=== PATIENT | female | born 1945 | race American Indian/Alaskan Native ===

== ENCOUNTER 2017-09-04 16:25 | Emergency (ER) | payer MEDICARE, OTHER ==
[2017-09-04 16:35] VITALS: BMI 28.3
[2017-09-04 16:39] VITALS: TEMP 97.9
[2017-09-04] MEDS ORDERED: Oxymetazoline 0.05% Nasal Spray (30 ml) NS STA (17:17)
--- NOTE | 2017-09-04 17:23 | C.PDOC ---
History Of Present Illness Patient is a 72 year old with past medical history of HTN and lumbar herniated disc who presents to the ED with her daughter with complaints of right epistaxis that has been ongoing for the past 3-4 weeks. Patient [place] [facility] [place], nasal packing was placed in and removed 3 days later and was given amoxicillin for 5 days. Patient reports after the removal of nasal packing, symptoms nose bleeding resumed and coughing of blood clots. Patient admits to dizziness, palpitations, SOB and loss of appetite but denies chest pain, fever, chills, nausea, vomiting, weakness or numbness or tingling, trauma or anti-coagulation, blood disorder, easy bruising/bleeding. Time Seen by Provider: 09/04/17 16:49 Chief Complaint (Nursing): ENT Problem History Per: Patient History/Exam Limitations: no limitations Onset/Duration Of Symptoms: Days Current Symptoms Are (Timing): Still Present Severity: Mild Pain Scale Rating Of: 0 Reports Recently: Seen In ED Recent travel outside of the [place]: No Additional History Per: Patient Past Medical History Vital Signs: Last Vital Signs Temp 97.9 F 09/04/17 16:35 Pulse 62 09/04/17 16:35 Resp 18 09/04/17 16:35 BP 116/78 09/04/17 16:35 Pulse Ox 96 09/04/17 19:17 - Medical History PMH: Back Problems, HTN Surgical History: Hernia Repair Family History: States: Unknown Family Hx Other Family History: Denies family hx of blood disorder - Social History Hx Tobacco Use: Yes Hx Alcohol Use: No Hx Substance Use: No - Immunization History Hx Tetanus Toxoid Vaccination: No Hx Influenza Vaccination: No Hx Pneumococcal Vaccination: No Review Of Systems Constitutional: Negative for: Fever, Chills, Weakness Eyes: Negative for: Pain, Vision Change ENT: Positive for: Other (Right epistaxis ) Cardiovascular: Positive for: Palpitations, Light Headedness. Negative for: Chest Pain, Orthopnea, Paroxysmal Noc. Dyspnea, Edema Respiratory: Positive for: Shortness of Breath, Wheezing. Negative for: SOB with Excertion, Pleuritic Pain, Sputum Gastrointestinal: Negative for: Nausea, Vomiting, Abdominal Pain, Constipation, Hematochezia, Hematemesis Genitourinary: Negative for: Hematuria Neurological: Positive for: Dizziness. Negative for: Weakness, Confusion, Seizures, Altered Mental Status Psych: Positive for: Anxiety Physical Exam - Physical Exam Appears: No Acute Distress Skin: Normal Color Head: Atraumatic, Normacephalic Eye(s): bilateral: Normal Inspection, PERRL, EOMI Ear(s): Bilateral: Normal, TM Erythema Nose: Normal, Other (Inflammed, no active bleeding ) Tongue: Normal Appearing, No Swelling, No Lesions, No Laceration, No Bleeding Lips: Normal Appearing Teeth: Normal Dentition Throat: Normal, No Erythema, No Exudate, No Drooling Cardiovascular: Rhythm Regular, No Murmur Respiratory: No Accessory Muscle Use, No Rales, No Rhonchi, Wheezing (Bilateral upper lobes ) Gastrointestinal/Abdominal: Normal Exam, Bowel Sounds, Soft, No Tenderness Extremity: No Tenderness, No Pedal Edema, No Calf Tenderness Extremity: Bilateral: Atraumatic, Normal ROM Neurological/Psych: Oriented x3, Normal Speech, Normal Cognition ED Course And Treatment - Laboratory Results Result Diagrams: 09/04/17 17:54 09/04/17 17:54 Lab Interpretation: Abnormal Interpretation Of Abnormal: Hypokalemia: K-dur 40meq PO once O2 Sat by Pulse Oximetry: 96 - Radiology CXR Interpretation: Yes: No Acute Disease Progress Note: Stable H/H Disposition Discussed With : Clifford Soliz - Disposition Referrals: Chay Langford MD [Staff Provider] - Disposition: HOME/ ROUTINE Disposition Time: 19:16 Condition: GOOD Additional Instructions: Please discharge patient home Please follow up with your primary care physician for an ENT referral Please follow up with your primary care physician Please increase intake of banana as you were noted to have hypokalemia. You were given K-Dur 40meq once in the ED Self care for nose bled: 1. Gently blow your nose to get rid of some of the clots that have formed inside your nostrils. This may increase the bleeding temporarily, but that's OK. For young children, this step is not necessary. 2. Sit or stand while bending forward slightly at the waist. Do not lie down or tilt your head back. This may cause you to swallow blood and can lead to vomiting. 3. Metals Analyst the soft part of BOTH nostrils at the bottom of your nose. Do not hide puller the bony bridge of your nose, as that will not help the bleeding, and do not apply pressure to just one side, even if the bleeding is only on one side. 4. Squeeze your nose closed for at least 5 minutes (for children) or 10 to 15 minutes (for adults), and use a clock to time yourself. Do not release the pressure every so often to check whether the bleeding has stopped. Many people hurt their chances of stopping the bleeding by releasing the pressure too soon. 5. If you want, you can also apply a cold compress or ice pack to the bridge of your nose. This may help the blood vessels constrict and slow the bleeding. This step is not usually necessary, but many people like to do it. 6. If you follow the steps outlined above, and your nose continues to bleed, repeat all the steps once more. Apply pressure for a total of at least 30 minutes. If you continue to bleed, seek emergency medical care, either at an emergency room or at an urgent care clinic. Things to help prevent nosebled 1. Use a humidifier in your bedroom while sleeping, especially when the air is very dry 2. Keep your nose moist using a saline nasal spray or gel 3. Avoid picking your nose, or if you must do it clip your fingernails to avoid injury Please take care Forms: [facility] (Tristanian) - Clinical Impression Clinical Impression: Right-sided epistaxis
[2017-09-04] MEDS ORDERED: Oxymetazoline 0.05% Nasal Spray (30 ml) NS ONE (17:45)
[2017-09-04 17:58] LABS: BASO % 1.1 % (0.0-2.0); EOS # 0.5 K/uL (0.0-0.7); EOS % 13.4 % (0.0-4.0); HEMOGLOBIN 12.9 g/dL (11.0-16.0); LYMPH # 1.9 K/uL (1.0-4.3); LYMPH % 50.8 % (20.0-40.0); MEAN CELL VOLUME 90.2 fL (81.0-99.0); MEAN CORPUSCULAR HGB CONC 33.2 g/dL (33.0-37.0); MEAN PLATELET VOLUME 9.5 fL (7.2-11.7); MONO # 0.3 K/uL (0.0-0.8); MONO % 6.7 % (0.0-10.0); NRBC % 0.1 % (0.0-2.0); RBC 4.32 Mil/uL (3.80-5.20); RED CELL DISTRIBUTION WIDTH 13.8 % (11.5-14.5); WHITE BLOOD COUNT 3.7 K/uL (4.8-10.8)
[2017-09-04 18:05] LABS: PROTHROMBIN TIME 10.6 SECONDS (9.7-12.2)
[2017-09-04 18:11] LABS: ALB/GLOB RATIO 1.2 (1.0-2.1); ALBUMIN 3.9 g/dL (3.5-5.0); ALT/SGPT 33 U/L (9-52); AST/SGOT 42 U/L (14-36); BLOOD UREA NITROGEN 11 mg/dL (7-17); CALCIUM 8.7 mg/dl (8.6-10.4); GFR AFRICAN-AMERICAN > 60; GFR NON-AFRICAN AMERICAN > 60
[2017-09-04] MEDS ORDERED: Potassium Chloride 20 mEq ER Tab PO ONE ×2 (18:19→18:34)
[2017-09-04 19:31] VITALS: BP 121/68; PULSE 84; RESP 16; O2SAT 98
== END 2017-09-04 19:30 | disposition home or self-care (01) ==
LOC: C.ER 16:25
DX: R04.0 Epistaxis (principal); E87.6 Hypokalemia